=== PATIENT | female | born 1995 ===

== ENCOUNTER 2019-07-29 12:02 | Outpatient (CLI) | payer SELFPAY | END 2019-07-29 12:03 | disposition EMS.NT | LOC: EMS 12:02 | PROVIDERS: ATTEND Surgery | DX: R20.8 Other disturbances of skin sensation (principal); V49.40XA Driver injured in collision with unspecified motor vehicles in traffic accident, initial encounter; W22.10XA Striking against or struck by unspecified automobile airbag, initial encounter; Y92.481 Parking lot as the place of occurrence of the external cause ==